=== PATIENT | female | born 1955 | race Caucasian/White ===

== ENCOUNTER 2016-09-01 05:39 | Observation (INO) | payer OTHER ==
[2016-09-01 06:09] VITALS: BMI 25.2
--- NOTE | 2016-09-01 06:20 | PDOC ---
History of Present Illness - General Stated Complaint: PALPITATION Time Seen by Provider: 09/01/16 05:52 - History of Present Illness Initial Comments: 09/01/16 06:17 CHIEF COMPLAINT: palpitations HISTORY OF PRESENT ILLNESS: 61 yo F with significant PMH of two MIs (s/p two stent placements in 2009), IDDM, ESRD (on nightly home dialysis) BIBEMS to ED for palpitations. Patient states she was prescribed a "new medication" and took her first dose last night around 8 pm. When she was getting ready to go to bed, she didn't feel well and felt palpitations and shortness of breath. Per EMS, the "new medication" was Cardizem and upon EMS arrival her BP was 88/55, and her heart rate was in the 40s. After being given a bolus of fluids in the ambulance, her HR went up to the 50s-60s. On arrival to ED she no longer feels short of breath. No recent travel or sick contacts. PAST MEDICAL HISTORY: as per HPI FAMILY HISTORY: Denies SOCIAL HISTORY: Lives at home with family. Denies tobacco, alcohol, illicit drug use. SURGICAL HISTORY:as per HPI ALLERGIES: No known drug allergies REVIEW OF SYSTEMS General/Constitutional: Denies fever or chills. Denies weakness, weight change. HEENT: Denies change in vision. Denies ear pain or discharge. Denies sore throat. Cardiovascular: Palpitations. Denies chest pain or shortness of breath. Respiratory: Denies cough, wheezing, or hemoptysis. Gastrointestinal: Denies nausea, vomiting, diarrhea or constipation. Denies rectal bleeding. Genitourinary: Denies dysuria, frequency, or change in urination. Neurologic: Denies headache, vertigo, loss of consciousness, or loss of sensation. PHYSICAL EXAM General Appearance: Well-appearing, appropriately dressed. No apparent distress , no intoxication. HEENT: EOMI, PERRLA, normal ENT inspection, normal voice, TMs normal, pharynx normal. No conjunctival pallor. No photophobia, scleral icterus. Neck: Supple. Trachea midline. No tenderness, rigidity, carotid bruit, stridor , lymphadenopathy, or thyromegaly. Respiratory/Chest: Lungs CTAB. No shortness of breath, chest tenderness, respiratory distress, accessory muscle use. No crackles, rales, rhonchi, stridor , wheezing, dullness Cardiovascular: Bradycardic to 50s. S1, S2. No JVD, murmur,. Vascular Pulses: Dorsalis-Pedis (R): 2+, Dorsalis-Pedis (L): 2+ Gastrointestinal/Abdominal: Normal bowel sounds. Abdomen soft, non-distended. No tenderness or rebound tenderness. No organomegaly, pulsatile mass, guarding , hernia, hepatomegaly, splenomegaly. Lymphatic: No adenopathy, tenderness. Musculoskeletal/Extremities: Normal inspection. FROM of all extremities, normal capillary refill. No tenderness to extremities, pedal edema, swelling, erythema or deformity. Integumentary: Appropriate color, dry, warm. No cyanosis, erythema, jaundice or rash Neurologic: house mover helper II-XII intact. Fully oriented, alert. Appropriate mood/affect. Motor strength 5/5. No appreciable EOM palsy, facial droop or sensory deficit. Past History - Past Medical History Allergies/Adverse Reactions: Allergies Allergy/AdvReac Type Severity Reaction Status Date / Time No Known Allergies Allergy Verified 09/01/16 08:31 Home Medications: Ambulatory Orders Aspirin Coated [Ecotrin -] 81 mg PO DAILY tablet.ec 09/02/16 Calcitriol [Calcitriol -] 0.25 mcg PO DAILY #0 09/02/16 Doxepin HCl [Sinequan -] 25 mg PO DAILY #0 09/02/16 Insulin Glargine,Hum.rec.anlog [Lantus (10mL VIAL) -] 13 units SQ HS #0 Losartan Potassium 50 mg PO DAILY #0 09/02/16 Metoprolol Succinate [Toprol Xl] 25 mg PO DAILY #30 tab.er.24h 09/02/16 Miscellaneous Medical Supply [Outpatient Order] 1 each ASDIR #1 misc Nifedipine [Nifedical Xl] 60 mg PO DAILY #0 09/02/16 Sertraline HCl 50 mg PO DAILY #0 09/02/16 Torsemide 100 mg PO DAILY #0 09/02/16 Anemia: No Asthma: No Cancer: No Cardiac Disorders: Yes ([place] 2009, 2 stents, CAD) CVA: No COPD: No CHF: No Dementia: No Diabetes: Yes GI Disorders: No Disorders: No HTN: Yes Hypercholesterolemia: No Liver Disease: No Seizures: No Thyroid Disease: No - Surgical History Abdominal Surgery: Yes (peritoneal cath placement) Appendectomy: No Cardiac Surgery: Yes (stent placement) Cholecystectomy: No Lung Surgery: No Neurologic Surgery: No Orthopedic Surgery: No - Psycho/Social/Smoking Cessation Hx Anxiety: No Suicidal Ideation: No Smoking History: Unknown if ever smoked Have you smoked in the past 12 months: No Hx Alcohol Use: No Drug/Substance Use Hx: No Substance Use Type: None Cardiac Specific PMH - Complaint Specific PMHX Pacemaker: No *Physical Exam - Vital Signs Last Vital Signs Temp Pulse Resp BP Pulse Ox 98.0 F 80 18 121/54 98 09/02/16 10:09 09/02/16 10:54 09/02/16 10:54 09/02/16 10:54 09/02/16 10:09 ED Treatment Course - LABORATORY CBC & Chemistry Diagram: 09/02/16 05:35 09/02/16 05:35 - ADDITIONAL ORDERS Additional order review: 09/01/16 09/01/16 10:17 08:00 RBC 3.45 L MCV 88.0 MCHC 32.3 RDW 19.0 H MPV 9.6 POC Glucometer [id number] - RADIOLOGY Radiology Studies Ordered: Category Date Time Status CHEST PA & LAT [RAD] Stat Radiology 09/01/16 06:02 Completed - Medications Given in the ED: ED Medications Discontinued Medications Generic Name Dose Route Start Last Admin Trade Name Freq PRN Reason Stop Dose Admin Aspirin 81 mg 09/02/16 10:00 09/02/16 11:36 Asa - PO 81 mg DAILY ELIESER Administration Aspirin 81 mg 09/02/16 10:00 09/02/16 11:36 Ecotrin - PO 81 mg DAILY ELIESER Administration Calcitriol 0.25 mcg 09/01/16 16:15 09/02/16 09:48 Rocaltrol - PO 0.25 mcg DAILY ELIESER Administration Doxepin HCl 25 mg 09/01/16 16:15 09/02/16 09:51 Sinequan - PO 25 mg DAILY ELIESER Administration Heparin Sodium (Porcine) 5,000 unit 09/01/16 15:00 09/02/16 09:48 Heparin - SQ 5,000 unit Q8H-IV ELIESER Administration Insulin Aspart 1 vial 09/01/16 16:30 09/02/16 11:36 Novolog Vial Sliding Scale - SQ Not Given ACHS [facility] Protocol Insulin Detemir 13 units 09/01/16 22:00 09/01/16 23:05 Levemir Vial SQ 13 units HS ELIESER Administration Insulin Human Regular 6 units 09/01/16 09:36 09/01/16 10:08 Novolin R Vial *Ivpush / Er / Icu Only* IVPUSH 09/01/16 09:37 Not Given ONCE ONE Insulin Human Regular 6 units 09/01/16 10:03 09/01/16 09:45 Novolin R Vial *Ivpush / Er / Icu Only* SQ 09/01/16 10:04 4 units ONCE ONE Administration Nifedipine 60 mg 09/02/16 10:00 09/02/16 09:48 Procardia Xl - PO 60 mg DAILY ELIESER Administration Sertraline HCl 50 mg 09/01/16 16:15 09/02/16 09:48 Zoloft - PO 50 mg DAILY ELIESER Administration Torsemide 100 mg 09/02/16 10:00 09/02/16 09:52 Demadex - PO 100 mg DAILY ELIESER Administration Medical Decision Making - Medical Decision Making 09/01/16 06:50 61 yo F with significant PMH of two MIs (s/p two stent placements in 2009), IDDM , ESRD (on nightly home dialysis) BIBEMS to ED for palpitations. -EKG, CXR -CBC, CMP, cardiac profile, PT/INR -cardiac monitoring, trend BP/HR Q30 min Discussed case with ER attending MD Caruso. Will hold CCB reversal treatment until labs have resulted. Patient is stable at this time. EKG with T wave inversions in lead III, more pronounced than previous. Reviewed by MD Caruso. Per MD Caruso, admit to inpatient service for possible inferior wall infarct and given recent history of similar episode with Cardizem () resulting in unresponsiveness. Case discussed in detail with oncoming emergency provider including history, physical exam and ancillary studies. In brief, this patient is being seen in the ED for a chief complaint of: palpitations I have completed the initial assessment interview note and have ordered the following labs: CBC, CMP, cardiac profile, PT/INR I have reviewed the following results: EKG Pending results: labs, CXR Please call the PCP: Juliano Bonner Plan for disposition as follows: admission Oncoming SUYAPA Menendez has assumed care for the patient and will complete the evaluation and treatment. *DC/Admit/Observation/Transfer Diagnosis at time of Disposition: Lethargy, Hyperglycemia - Discharge Dispostion Disposition: HOME Condition at time of disposition: Improved - Prescriptions
--- NOTE | 2016-09-01 07:32 | PDOC ---
*Physical Exam - Vital Signs Last Vital Signs Temp Pulse Resp BP Pulse Ox 97.5 F L 80 18 101/59 98 09/01/16 06:07 09/01/16 06:07 09/01/16 06:07 09/01/16 06:07 09/01/16 06:07 - Physical Exam General Appearance: Yes: Appropriately Dressed. No: Apparent Distress HEENT: positive: Normal Voice Neck: positive: Supple Respiratory/Chest: positive: Lungs Clear, Normal Breath Sounds. negative: Respiratory Distress Cardiovascular: positive: Regular Rate, S1, S2 Gastrointestinal/Abdominal: positive: Soft. negative: Tender Integumentary: positive: Dry, Warm Neurologic: positive: Fully Oriented, Alert, Normal Mood/Affect ED Treatment Course - LABORATORY CBC & Chemistry Diagram: 09/01/16 08:00 09/01/16 08:00 Medical Decision Making - Medical Decision Making 09/01/16 07:27 61 yo F, h/o HTN, CAD, [place], multiple, DM, ESRD on PD, p/w lethargy. Found to be bradycardic and modesto at scene. Of note, patient recently started on Cardizem. In ED, patient stable with unremarkable exam as per prior mid-level. Deeper TWI in lead 3 compared to old EKG. Labs pending. Follows up with PMD Dr. Juliano Bonner 09/01/16 11:48 BG 390, insulin in progress. Rest of labs unremarkable. Will admit for mild T wave changes. Case d/w hospitalist and pt admitted to obs/tele 09/01/16 11:49 *DC/Admit/Observation/Transfer Diagnosis at time of Disposition: Lethargy, Hyperglycemia - Discharge Dispostion Condition at time of disposition: Stable Admit: Yes - Referrals Referrals: Raza Bonner [Primary Care Provider] -
[2016-09-01 08:41] LABS: INR 1.07 (0.82-1.09); PROTHROMBIN TIME (PATIENT) 11.8 SEC (9.98-11.88)
[2016-09-01 08:47] LABS: MCH 28.4 pg (25.7-33.7); MCHC 32.3 g/dl (32.0-36.0); MEAN PLT VOLUME 9.6 fl (7.5-11.1); PLATELET COUNT 324 K/MM3 (134-434); WHITE BLOOD COUNT 12.2 K/mm3 (4.0-10.0)
[2016-09-01 09:27] LABS: ALBUMIN 2.5 g/dl (3.4-5.0); ANION GAP 12 (8-16); BILIRUBIN,TOTAL 0.4 mg/dL (0.2-1.0); CO2 21 mmol/L (21-32); SGOT/AST 23 U/L (15-37); SGPT/ALT 31 U/L (12-78); TOT PROT 6.9 g/dl (6.4-8.2)
[2016-09-01 09:33] LABS: ALK PHOS 256 U/L (45-117); TROPONIN I < 0.02 ng/ml (0.00-0.05)
[2016-09-01 09:36] LABS: CREATININE 11.9 mg/dL (0.55-1.02); GLUCOSE,RANDOM 393 mg/dL (74-106)
[2016-09-01] MEDS: INSULIN REGULAR HUMAN 100 UNITS/ML *VIAL IVPUSH ONE ×2 (09:54→10:08)
[2016-09-01] MEDS ORDERED: INSULIN REGULAR HUMAN 100 UNITS/ML *VIAL ONE (09:54)
[2016-09-01] MEDS ORDERED: INSULIN REGULAR HUMAN 100 UNITS/ML *VIAL SQ ONE (10:03)
--- NOTE | 2016-09-01 14:08 | HP ---
CHIEF COMPLAINT: Palpitations. PCP: HISTORY OF PRESENT ILLNESS: The pt is a 61 year old female with a significant PMH of [place], s/p 2 stants in 2009, IDDM, ESRD( on home daily dialysis) who presents to the hospital via EMS. Yesterday around 8 PM she took Dilitiazem and felt palpitations, diaphoresis and SOB. The pt called ambulance. She states that never had episode like that in the past. BP on EMS arrival was 88/55, HR 40. After she was given fluids her BP increased as well as HR. She denies LOC, chest pain, cough. She denies dysuria, increased urgency, frequency, fever, chiills, N/V, diarrhea, constipation. The pt was recently hospitalized in [facility] for Acute respiratory failure and PNA. ER course was notable for: (1)BGM, (2)CXR PAST MEDICAL HISTORY: [place], s/p 2 stants in 2009, IDDM, ESRD( on home daily dialysis), Polio as a child PAST SURGICAL HISTORY: 2 stents 2009, peritoneal cath placement, right shoulder repair after an accident Social History: Smoking:Denies Alcohol:Denies Drugs:Denies Family History: Mother; Asthma Father; N/A Allergies: No Known Allergies Allergy (Verified 09/01/16 08:31) HOME MEDICATIONS: Medication Instructions Recorded Aspirin [ASA -] 81 mg PO DAILY 10/27/13 Hydralazine HCl 25 mg PO TID 10/27/13 Insulin Glargine,Hum.rec.anlog 20 units SQ HS 10/27/13 [Lantus Solostar PEN -] Metoprolol Succinate [Toprol XL -] 50 mg PO DAILY 10/27/13 Sodium Bicarbonate 650 mg PO BID 10/27/13 REVIEW OF SYSTEMS CONSTITUTIONAL: Absent: fever, chills, diaphoresis, generalized weakness, malaise, loss of appetite, weight change HEENT: Absent: rhinorrhea, nasal congestion, throat pain, throat swelling, difficulty swallowing, mouth swelling, ear pain, eye pain, visual changes CARDIOVASCULAR: Absent: chest pain, syncope, palpitations, irregular heart rate, lightheadedness , peripheral edema RESPIRATORY: Absent: cough, shortness of breath, dyspnea with exertion, orthopnea, wheezing, stridor, hemoptysis GASTROINTESTINAL: Absent: abdominal pain, abdominal distension, nausea, vomiting, diarrhea, constipation, melena, hematochezia GENITOURINARY: Absent: dysuria, frequency, urgency, hesitancy, hematuria, flank pain, genital pain MUSCULOSKELETAL: Absent: myalgia, arthralgia, joint swelling, back pain, neck pain SKIN: Absent: rash, itching, pallor HEMATOLOGIC/IMMUNOLOGIC: Absent: easy bleeding, easy bruising, lymphadenopathy, frequent infections ENDOCRINE: Absent: unexplained weight gain, unexplained weight loss, heat intolerance, cold intolerance NEUROLOGIC: Absent: headache, focal weakness or paresthesias, dizziness, unsteady gait, seizure, mental status changes, bladder or bowel incontinence PSYCHIATRIC: Absent: anxiety, depression, suicidal or homicidal ideation, hallucinations. PHYSICAL EXAMINATION GENERAL: Awake, alert, and fully oriented, in no acute distress. HEAD: Normal with no signs of trauma. EYES: Pupils equal, round and reactive to light, extraocular movements intact, sclera anicteric, conjunctiva clear. No lid lag. EARS, NOSE, THROAT: Ears normal, nares patent, oropharynx clear without exudates. Moist mucous membranes. NECK: Normal range of motion, supple without lymphadenopathy, JVD, or masses. LUNGS: Breath sounds equal, clear to auscultation bilaterally. No wheezes, and no crackles. No accessory muscle use. HEART: Regular rate and rhythm, normal S1 and S2 without murmur, rub or gallop. ABDOMEN: Soft, nontender, not distended, normoactive bowel sounds, no guarding, no rebound, no masses. No hepatomegaly or splenomegaly. MUSCULOSKELETAL: Normal range of motion at all joints. No bony deformities or tenderness. No CVA tenderness. UPPER EXTREMITIES: 2+ pulses, warm, well-perfused. No cyanosis. No clubbing. Cap refill <2 seconds. No peripheral edema. LOWER EXTREMITIES: 2+ pulses, warm, well-perfused. No calf tenderness. Left calf muscle atrophy. No peripheral edema. NEUROLOGICAL: Cranial nerves II-XII intact. Left foot drop. Normal speech. Gait not observed. PSYCHIATRIC: Cooperative. Good eye contact. Appropriate mood and affect. SKIN: Warm, dry, normal turgor, no rashes or lesions noted. ASSESSMENT/PLAN: The pt is a 61 year old female with a significant PMH of DE, s/p 2 stants in 2009, IDDM, ESRD( on home daily dialysis) who presents to the hospital via EMS. Yesterday around 8 PM she took Dilitiazem and felt palpitations, diaphoresis and SOB. The pt called ambulance. She states that never had episode like that in the past. BP on EMS arrival was 88/55, HR 40. After she was given fluids her BP increased as well as HR. No more palpitations in the hospital. She is placed on observation for hypotension and bradycardia. Hypotension and bradycardia: -probably due to several medications for HTN -hold Metoprolol, Dilitiazem, Losartan -cardiology consultation -no new EKG changes when compared to previous EKG (T wave inversion in the past) -f/u troponins -cardiac monitoring -vital signs Hyperglycemia: -ISS ACHS -BGM ACHS -increase Lantus to 13 units HS Normocytic anemia: -Hgb 9.8, recently around 8 -f/u Iron studies ESRD: -continue peritoneal dialysis -pt on home machine at the hospital -Nephrology consultation -avoid nephrotoxic substances DVT PPX: Heparin 5000 u SQ Q8h F/E/N: No/No/Low sodium diet Disposition: Placed on observation in telemetry Problem List - Problem (1) Hyperglycemia Code(s): R73.9 - HYPERGLYCEMIA, UNSPECIFIED (2) ESRD on peritoneal dialysis Code(s): N18.6 - END STAGE RENAL DISEASE Z99.2 - DEPENDENCE ON RENAL DIALYSIS (3) Hypotension Code(s): I95.9 - HYPOTENSION, UNSPECIFIED Qualifiers: Hypotension type: other hypotension type Qualified Code(s): I95.89 - Other hypotension (4) Bradycardia Code(s): R00.1 - BRADYCARDIA, UNSPECIFIED Visit type - Emergency Visit Emergency Visit: Yes ED Registration Date: 09/01/16 Care time: The patient presented to the Emergency Department on the above date and was hospitalized for further evaluation of their emergent condition. - New Patient This patient is new to me today: Yes Date on this admission: 09/01/16 - Critical Care Critical Care patient: No
--- NOTE | 2016-09-01 14:48 | PN ---
Teaching Attending Note Name of Resident: Michelle Chang ATTENDING PHYSICIAN STATEMENT I saw and evaluated the patient. I reviewed the resident's note and discussed the case with the resident. I agree with the resident's findings and plan as documented. SUBJECTIVE: CC : hypotension and palpitations. She was started on CArdizem yesterday . Took first pill at 8 pm, then did not feel well at night . early this am she has palpitations, sweating and felt like having hot flashes. she checked her BP it was SBP 64 ,, so ambulance was called . Cardizzem was prescribed by her HD doctor , although on bottle it has Dr. Dinero name . She denies any fever or chills, cough or sputum production , denies any abd pain , she does not make urine OBJECTIVE: NAD , AAOx3 HEENT: MMM, no JVD, symmetric face , EOMI.. CV: RRR, modesto , NO MRG Lungs : CTAB ABd : soft, NT, ND , NL BS , RLQ dialysis cath with no surrounding erythema or edema Ext : no edema over lower or upper ext . L foot drop. L leg muscular atrophy. ASSESSMENT AND PLAN: 61 y/o lady withh/o DM , ESRD on peritoneal HD , CAD, [place], Stents in 2013 other medical problems, and recent hospitalization for septic shock from [facility] in who presented after an episode of palpitation, sweating and hypotension. she was found to have hypotension , and bradycardia and hyperglycemia 1- HYpotension and bradycardia: It could be due to medication effect Cardizem in addition to BB she takes at home. she does not look volume depleted . ACS needs to be R/O but pt has no change in her EKG frm last admission ( junctional rhythm with inverted T waves in V1, III) , she also does not have CP. SBP has improved to 101 and HR is 80s . Sh had rapid palpitations at home , we need to monitor for modesto-tachy syndrome - hold AV jonatan marce . monitor BP and HR, might need to resume BB soon. not clear why cardizem was added ( ? tachycardia ) - tele monitoring - Dr. Trotter is her cardioogist - hold off further IVF , given her ESRD . - patient does not seem to be septic , although she has mild leukocytosis . she has no source of infection ( no diarrhea , abd apin, fever , chills, cough , or any infiltrate on Cxray). will monitor for any signs of infection sridevi she has dialysis cath in abd . - if she has fever , will send blood cx andcover with Abx . hold off now 2- ESRD: on peritoneal dialysis x 9 hr each night - no electrolytes abn . - will consult Dr. Cox 3- Dm with severe hyperglycemia : no evidence of DKA. - received regula insulinin ER but no repeat of her sugar. - will repeat - SSI . - will confirm her lantus dose and prescribe HS 4- DVTPX heparin will confirm home meds as pt does not have list with her .
[2016-09-01] MEDS: HEPARIN NA (PORCINE) 5,000 UNITS/ML 1ML VIAL SQ SCH (15:08)
[2016-09-01] MEDS ORDERED: HEPARIN NA (PORCINE) 5,000 UNITS/ML 1ML VIAL ONE (15:08)
--- NOTE | 2016-09-01 15:27 | CONSULT ---
Consult - text type - Consultation Consultation Note: Renal Consult for ESRD on PD This is a 61 year old woman with PMhx of ESRD on PD, CAD s/p IN, DM with recent admission for Sepsis/PNA requiring ICU stay presents with weakness and dizziness and found to have symptomatic bradycardia. Pt was started on Cardizem by PMD yesterday. Pt denies any chest pain, sob, abd pain, N/V/D. Did PD last night but cut it short because she was not feeling well. Denies any fever, chills or Abd pain. PMhx: as above Alleriges: NKDA Family Hx: NC Social Hx: No T/A/D ROS: as per HPI, all other pertinent ros negative Home Meds: Medication Instructions Recorded Calcitriol [Rocaltrol -] 0.25 mcg PO DAILY 09/01/16 Doxepin HCl [Sinequan -] 25 mg PO DAILY 09/01/16 Insulin Glargine,Hum.rec.anlog 10 units SQ HS 09/01/16 [Lantus (nf)] Losartan Potassium 50 mg PO DAILY 09/01/16 Metoprolol Succinate [Toprol Xl] 50 mg PO DAILY 09/01/16 Nifedipine [Nifedical Xl] 60 mg PO DAILY 09/01/16 Sertraline HCl 50 mg PO DAILY 09/01/16 Torsemide 100 mg PO DAILY 09/01/16 Vital Signs Temperature 98.2 F 09/02/16 07:00 Pulse Rate 84 09/02/16 07:00 Respiratory Rate 20 09/02/16 07:00 Blood Pressure 120/52 09/02/16 07:00 O2 Sat by Pulse Oximetry (%) 95 09/02/16 04:00 Gen: NAD, awake and alert HEENT: NC/AT, MMM, No JVD CVS: bradycaridc No M/R lungs: CTA, no rales or wheeze Abd: soft NT/ND, PD catheter in place Ext: No edmea, clubbing or cyanosis : No bladder distension CBC, BMP 09/02/16 05:35 09/02/16 05:35 Current Medications Calcitriol (Rocaltrol -) 0.25 mcg PO DAILY [facility] Last Admin: 09/01/16 17:01 Dose: 0.25 mcg Doxepin HCl (Sinequan -) 25 mg PO DAILY [facility] Last Admin: 09/01/16 17:01 Dose: 25 mg Heparin Sodium (Porcine) (Heparin -) 5,000 unit SQ Q8H-IV ELIESER Last Admin: 09/02/16 02:00 Dose: Not Given Insulin Aspart (Novolog Vial Sliding Scale -) 1 vial SQ ACHS ELIESER PRN Reason: Protocol Last Admin: 09/02/16 06:56 Dose: 6 units Insulin Detemir (Levemir Vial) 13 units SQ HS ELIESER Last Admin: 09/01/16 23:05 Dose: 13 units Nifeidipine (Procardia Xl -) 60 mg PO DAILY ELIESER Sertraline HCl (Zoloft -) 50 mg PO DAILY [facility] Last Admin: 09/01/16 17:01 Dose: 50 mg Torsemide (Demadex -) 100 mg PO DAILY ELIESER A/P 61 year old woman with PMhx of ESRD on PD, CAD s/p IN, DM with recent admission for Sepsis/PNA requiring ICU stay presents with weakness and dizziness and found to have symptomatic bradycardia. #Symptomatic Bradycardia From CCB +BB Cardiology follow up Tele monitoring #ESRD on PD Will resume PD via the cycler as inpatient to bring in cycler from home Continue Torsemide Daily #CKD related Anemia No indication for transfusion to resume MARJORIE protocol as outpatient Thank you will follow
--- NOTE | 2016-09-01 16:19 | EKG ---
Test Reason : Blood Pressure : / mmHG Vent. Rate : 052 BPM Atrial Rate : 047 BPM P-R Int : 000 ms QRS Dur : 088 ms QT Int : 472 ms P-R-T Axes : 000 060 -02 degrees QTc Int : 438 ms JUNCTIONAL RHYTHM CANNOT RULE OUT INFERIOR INFARCT , AGE UNDETERMINED ABNORMAL ECG WHEN COMPARED WITH ECG OF 04-AUG-2016 21:10, JUNCTIONAL RHYTHM HAS REPLACED ATRIAL FIBRILLATION NONSPECIFIC T WAVE ABNORMALITY NOW EVIDENT IN ANTERIOR LEADS Confirmed by LUZ MARINA POLANCO MD ([id number]) on 09/01/2016 4:19:03 PM Referred By: Confirmed By:LUZ MARINA POLANCO MD
[2016-09-01] MEDS ORDERED: INSULIN SLIDING SCALE (NOVOLOG) 1 VIAL SQ SCH (16:30)
[2016-09-01] MEDS: CALCITRIOL 0.25 MCG CAPSULE (FP) PO SCH (17:01)
[2016-09-01] MEDS: SERTRALINE HCL 50 MG TABLET (FP) PO SCH (17:01)
[2016-09-01] MEDS: DOXEPIN HCL 25 MG CAPSULE PO SCH (17:01)
[2016-09-01] MEDS: INSULIN SLIDING SCALE (NOVOLOG) 1 VIAL SQ SCH ×2 (17:55→23:05)
[2016-09-01] MEDS ORDERED: SODIUM BICARBONATE 650 MG TABLET PO SCH (22:00)
[2016-09-01] MEDS ORDERED: INSULIN DETEMIR 100 UNITS/ML MDV SQ SCH ×2 (22:00)
--- NOTE | 2016-09-01 23:59 | CONSULT ---
[id number] a new medication (diltiazem) - History of Present Illness Chief Complaint: No palpitations or chest pain presently. History of Present Illness: 61 yo F with significant PMH of two MIs (s/p two stent placements in 2009), IDDM , ESRD (on nightly home dialysis) BIBEMS to ED for palpitations. Patient states she was prescribed a "new medication" and took her first dose last night around 8 pm. When she was getting ready to go to bed, she didn't feel well and felt palpitations and shortness of breath. Per EMS, the "new medication" was Cardizem and upon EMS arrival her BP was 88/55, and her heart rate was in the 40s. After being given a bolus of fluids in the ambulance, her HR went up to the 50s-60s. On arrival to ED she no longer feels short of breath. - History Source History Provided By: Medical Record - Past Medical History Cardio/Vascular: Yes: CAD, HTN, Hyperlipdemia, PA (2009). No: AFIB, Aneurysm, Aortic Insufficiency, Pulmonary Hypertension Gastrointestinal: Yes: Other (Peritoneal dialysis for 10 days only) Hepatobiliary: Yes: Cholelithiasis, Hepatitis B (had past exposure, antigen negative as outpatient) Renal/: Yes: Renal Failure, Renal Calculi (s/p 2 stents , three years ago) Reproductive: Yes: Postmenopausal ...: No Heme/Onc: Yes: Anemia Musculoskeletal: Yes: Chronic low back pain Endocrine: Yes: Diabetes Mellitus ((11-12 years)) - Past Surgical History Past Surgical History: Yes: Cholecystectomy, Hysterectomy, Oopherectomy, Stent ( coronary stent 2009) - Alcohol/Substance Use Hx Alcohol Use: No - Smoking History Smoking history: Unknown if ever smoked Have you smoked in the past 12 months: No - Social History Usual Living Arrangement: With Spouse ADL: Independent History of Recent Travel: Yes Home Medications - Allergies Allergies/Adverse Reactions: Allergies Allergy/AdvReac Type Severity Reaction Status Date / Time No Known Allergies Allergy Verified 10/02/16 18:49 - Home Medications Home Medications: Ambulatory Orders Aspirin Coated [Ecotrin -] 81 mg PO DAILY tablet.ec 09/02/16 Calcitriol [Calcitriol -] 0.25 mcg PO DAILY #0 09/02/16 Insulin Glargine,Hum.rec.anlog [Lantus (10mL VIAL) -] 13 units SQ HS #0 Losartan Potassium 50 mg PO DAILY #0 09/02/16 Metoprolol Succinate [Toprol Xl] 25 mg PO DAILY #30 tab.er.24h 09/02/16 Miscellaneous Medical Supply [Outpatient Order] 1 each ASDIR #1 misc Nifedipine [Nifedical Xl] 60 mg PO DAILY #0 09/02/16 Sertraline HCl 50 mg PO DAILY #0 09/02/16 Torsemide 100 mg PO DAILY #0 09/02/16 Family Disease History - Family Disease History Family Disease History: Diabetes: Son, Daughter Review of Systems - Review of Systems Constitutional: reports: Weakness Eyes: reports: No Symptoms HENT: reports: No Symptoms Neck: reports: No Symptoms Respiratory: reports: SOB on Exertion Genitourinary: reports: Other Neurological: reports: No Symptoms Endocrine: reports: Increased Hunger Hematology/Lymphatic: reports: No Symptoms Psychiatric: reports: Anxiety - Risk Factors Known Risk Factors: Yes: Hypercholesterolemia, Hypertension, Physical Inactivity , Prior PA /Emb Stroke, Other Vital Signs: Vital Signs Temperature 97.5 F L 09/01/16 06:07 Pulse Rate 69 09/01/16 18:40 Respiratory Rate 18 09/01/16 06:07 Blood Pressure 127/67 09/01/16 18:40 O2 Sat by Pulse Oximetry (%) 98 09/01/16 06:07 Constitutional: Yes: Anxious Eyes: Yes: WNL HENT: Yes: WNL Neck: Yes: WNL Respiratory: Yes: Regular Gastrointestinal: Yes: Soft Renal/: No: Anuria Cardiovascular: Yes: Regular Rate and Rhythm JVD: No Carotid Bruit: No PMI: Non-Displaced Heart Sounds: Yes: S1, S2, S4 Murmur: Yes: Systolic Murmur, Grade 2 Musculoskeletal: Yes: Muscle Weakness Extremities: Yes: WNL Edema: No Peripheral Pulses WNL: No Peripheral Pulses: 1+ Left Doralis Pedis, 1+ Right Dorsalis Pedis Integumentary: Yes: WNL Neurological: Yes: Alert, Oriented - Other Data Labs, Other Data: INR, PTT INR 1.07 (0.82-1.09) 09/01/16 08:00 Echo: Report Reviewed (Normal LVEF; moderate TR; moderate-severe MR) Imaging - Results Chest X-ray: Image Reviewed (right infiltrates) EKG: Image Reviewed (NSR) Problem List - Problems (1) Bradycardia Assessment/Plan: bradycardia and hypotension after recently starting diltiazem. Agree with discontinuation of diltiazem (BP and HR have improved in ER); f/u on telemetry. TFTs WNL (07/2016). Code(s): R00.1 - BRADYCARDIA, UNSPECIFIED (2) Anemia Code(s): D64.9 - ANEMIA, UNSPECIFIED Qualifiers: Anemia type: unspecified type Qualified Code(s): D64.9 - Anemia, unspecified (3) Diabetes mellitus Code(s): E11.9 - TYPE 2 DIABETES MELLITUS WITHOUT COMPLICATIONS (4) ESRD on peritoneal dialysis Assessment/Plan: F/u with access assoc Code(s): N18.6 - END STAGE RENAL DISEASE Z99.2 - DEPENDENCE ON RENAL DIALYSIS (5) Lactic acidosis Code(s): E87.2 - ACIDOSIS
[2016-09-02 00:04] LABS: GLUCOSE,RANDOM 252 mg/dL (74-106)
[2016-09-02 00:05] LABS: TROPONIN I < 0.02 ng/ml (0.00-0.05)
[2016-09-02] MEDS: HEPARIN NA (PORCINE) 5,000 UNITS/ML 1ML VIAL SQ SCH ×2 (02:00→09:48)
[2016-09-02] MEDS: INSULIN SLIDING SCALE (NOVOLOG) 1 VIAL SQ SCH ×2 (06:56→11:36)
[2016-09-02 08:03] LABS: MCH 28.3 pg (25.7-33.7); MCHC 32.3 g/dl (32.0-36.0); MEAN CELL VOLUME 87.6 fl (80-96); MEAN PLT VOLUME 9.5 fl (7.5-11.1); PLATELET COUNT 311 K/MM3 (134-434); RDW 19.1 % (11.6-15.6); WHITE BLOOD COUNT 12.1 K/mm3 (4.0-10.0)
[2016-09-02 08:20] LABS: ANION GAP 14 (8-16); CALCIUM 7.2 mg/dL (8.5-10.1); CO2 25 mmol/L (21-32); GLUCOSE,RANDOM 230 mg/dL (74-106)
[2016-09-02 08:25] LABS: FERRITIN 498.071 ng/ml (6.9-282.5); TROPONIN I < 0.02 ng/ml (0.00-0.05)
[2016-09-02] MEDS ORDERED: PT OWN MED DRAWER 7, Y5N ONE (08:49)
[2016-09-02 09:33] LABS: CREATININE 11.4 mg/dL (0.55-1.02)
[2016-09-02] MEDS: SERTRALINE HCL 50 MG TABLET (FP) PO SCH (09:48)
[2016-09-02] MEDS: CALCITRIOL 0.25 MCG CAPSULE (FP) PO SCH (09:48)
[2016-09-02] MEDS: DOXEPIN HCL 25 MG CAPSULE PO SCH (09:51)
[2016-09-02] MEDS ORDERED: METOPROLOL SUCCINATE 25 MG TAB.SR.24H (FP) ONE (09:56)
[2016-09-02] MEDS ORDERED: ASPIRIN 81 MG CHEWABLE TABLETS ONE (09:56)
[2016-09-02] MEDS ORDERED: ASPIRIN COATED 81 MG TABLET.EC PO SCH (10:00)
[2016-09-02] MEDS ORDERED: TORSEMIDE 100 MG TABLET PO SCH (10:00)
[2016-09-02] MEDS ORDERED: NIFEdipine E.R 60 MG TABLET (UD) PO SCH ×2 (10:00)
[2016-09-02] MEDS ORDERED: ASPIRIN 81 MG CHEWABLE TABLETS PO SCH (10:00)
[2016-09-02 10:10] VITALS: TEMP 98
[2016-09-02 10:54] VITALS: BP 121/54; PULSE 80
--- NOTE | 2016-09-02 14:40 | EKG ---
Test Reason : Blood Pressure : / mmHG Vent. Rate : 061 BPM Atrial Rate : 061 BPM P-R Int : 176 ms QRS Dur : 088 ms QT Int : 446 ms P-R-T Axes : 012 013 013 degrees QTc Int : 448 ms NORMAL SINUS RHYTHM NORMAL ECG WHEN COMPARED WITH ECG OF 01-SEP-2016 06:18, SINUS RHYTHM HAS REPLACED JUNCTIONAL RHYTHM NONSPECIFIC T WAVE ABNORMALITY NO LONGER EVIDENT IN ANTERIOR LEADS Confirmed by COLLIN BERGER, LUZ MARINA ([id number]) on 09/02/2016 2:39:40 PM Referred By: Confirmed By:LUZ MARINA POLANCO MD
--- NOTE | 2016-09-02 16:53 | DS ---
Physical Examination Vital Signs: Vital Signs Temperature 98.0 F 09/02/16 10:09 Pulse Rate 80 09/02/16 10:54 Respiratory Rate 18 09/02/16 10:54 Blood Pressure 121/54 09/02/16 10:54 O2 Sat by Pulse Oximetry (%) 98 09/02/16 10:09 Findings/Remarks: no fever or chills, no abd pain, no SOB or palpitations , no CP. No light headedness PE : NAD , AAOx3 HEENT: MMM, no JVD, symmetric face , EOMI.. CV: RRR, [place] , 2/6 DM in LLSBand Elma Lungs : CTAB ABd : soft, NT, ND , NL BS , RLQ dialysis cath with no surrounding erythema or edema Ext : no edema over lower or upper ext . L foot drop. L leg muscular atrophy. Labs: CBC, BMP 09/02/16 05:35 09/02/16 05:35 Discharge Summary Reason For Visit: PALPITATION Hospital Course: Dc Diagnoses : 1- Hypotension , and bradycardia . Hospital course : 61 y/o lady with h/o DM , ESRD on peritoneal HD , CAD, MS, Stents in 2013 other medical problems, and recent hospitalization for septic shock from [facility] in 08/03 who presented after an episode of palpitation, sweating and hypotension. she was found to have hypotension , and bradycardia and hyperglycemia at presentation to the ER . Her hypotension was thought to be due to cardizem CD 360 as she was prescribed this one day prior to admission and took the first pill that night . ( took pill at 8 pm and over night and early AM she had sx of light headedness , sweating , and palpitations, sBP per pt machine in 60s ) at presentation she was bracdycardic to 50s . ( junctional rhythm ) . Her EKG did not show change from prior one Her CArdizem was held , and her other BP meds were held yesterday . she had received Peritoneal Dialysis oer night . This am her HR was in 80s and her BP was 120 . she was given her Nifedipine XL in am and was advised not to take Cardizem at dc and take half the dose of her toprol . she is to cont losartan . She was no though to be septic although she has mild leukocytosis of 12 K ( same as dc last month ) . She has no source of infection ( no diarrhea , abd apin, fever , chills, cough , or any infiltrate on Cxray, NL abd exam ). she was asked to take aspirin given her hx . She was seen by Dr. Ervin and he agreed with the plan . e she had GLC of 360 at presentatio , he rlantus dose was increased form 10 to 13 units HS . Dispo : Home Condition : improved F/u : PCP , and Card , and renal Blood work ; in 1 week to be faxed to Dr. Bonner Condition: Improved - Instructions Diet, Activity, Other Instructions: please follow with your PCP in [address] Trotter in 1 week - take half the dose of metoprolol ( 25 mg instead of 50 mg ) , new prescription sent to pharmacy - do NOT take cardizem until you follow with rn otolaryngology - jim hare any dizziness, palpitations, fever , chills, change in vision or any other symptoms to your doctor - take baby aspirin every day - continue to follow withyour gasket inspector - blood work in [address] Bonner - check your blood pressure daily , report to your doctor . if your BP < 105/60 please hold your blood pressure medications ( metorpolol, losartan, and nifedipine ) and call your doctor . - if your BP > 160/60 take your medicines and call your doctor . - your insulin dose was increased to 13 units . Referrals: Lacho Trotter MD [Staff Physician] - 1 Week Raza Bonner [Primary Care Provider] - 1 Week Disposition: HOME - Home Medications Comprehensive Discharge Medication List: Ambulatory Orders Aspirin Coated [Ecotrin -] 81 mg PO DAILY tablet.ec 09/02/16 Calcitriol [Calcitriol -] 0.25 mcg PO DAILY #0 09/02/16 Doxepin HCl [Sinequan -] 25 mg PO DAILY #0 09/02/16 Insulin Glargine,Hum.rec.anlog [Lantus (10mL VIAL) -] 13 units SQ HS #0 Losartan Potassium 50 mg PO DAILY #0 09/02/16 Metoprolol Succinate [Toprol Xl] 25 mg PO DAILY #30 tab.er.24h 09/02/16 Miscellaneous Medical Supply [Outpatient Order] 1 each ASDIR #1 misc Nifedipine [Nifedical Xl] 60 mg PO DAILY #0 09/02/16 Sertraline HCl 50 mg PO DAILY #0 09/02/16 Torsemide 100 mg PO DAILY #0 09/02/16 This patient is new to me today: No Emergency Visit: Yes ED Registration Date: 09/01/16 Care time: The patient presented to the Emergency Department on the above date and was hospitalized for further evaluation of their emergent condition. Critical Care patient: No - Discharge Referral Referred to [facility] No
[2016-09-04 00:07] LABS: SERUM IRON 49 ug/dL (27-139); TOTAL IRON BINDING CAPACITY 182 ug/dL (250-450); UIBC 133 ug/dL (118-369)
== END 2016-09-02 14:58 | disposition home or self-care (01) ==
LOC: JER 05:39 → JERBED 11:58 → J4W 20:43
PROVIDERS: ADMIT Internal Medicine; ATTEND Internal Medicine
PROC: 3E1M39Z Irrigation of Peritoneal Cavity using Dialysate, Percutaneous Approach (ICD-10-PCS; principal; 2016-09-01)
DX: I95.2 Hypotension due to drugs (principal); T46.1X5A Adverse effect of calcium-channel blockers, initial encounter; R00.1 Bradycardia, unspecified; R00.2 Palpitations; I25.10 Atherosclerotic heart disease of native coronary artery without angina pectoris; Z95.5 Presence of coronary angioplasty implant and graft; I12.0 Hypertensive chronic kidney disease with stage 5 chronic kidney disease or end stage renal disease; N18.6 End stage renal disease; Z99.2 Dependence on renal dialysis; E11.65 Type 2 diabetes mellitus with hyperglycemia; I25.2 Old myocardial infarction; Z79.4 Long term (current) use of insulin; Z86.12 Personal history of poliomyelitis; D63.1 Anemia in chronic kidney disease
CPT/HCPCS: 36415; 71020-TC; 80048; 80053; 82550; 82728; 82947; 83540; 83550; 84484; 85027; 85610; 93005; 93010; 99283-25; G0378; J1644

== ENCOUNTER 2016-10-02 18:43 | Emergency (ER) | payer OTHER ==
[2016-10-02] MEDS ORDERED: ASPIRIN 81 MG CHEWABLE TABLETS PO ONE ×2 (18:53→19:02)
[2016-10-02 18:56] VITALS: PULSE 108; TEMP 97.6; BMI 25.4
[2016-10-02] MEDS ORDERED: NITROGLYCERIN 2% OINTMENT - 1GM PACKET TD ONE (19:01)
[2016-10-02] MEDS ORDERED: NITROGLYCERIN SUBLINGUAL 1/150 0.4 MG TAB SL ONE ×2 (19:02→19:55)
--- NOTE | 2016-10-02 19:04 | PDOC ---
*Physical Exam - Vital Signs Last Vital Signs Temp Pulse Resp BP Pulse Ox 97.6 F 108 H 18 212/122 92 L 10/02/16 18:51 10/02/16 18:51 10/02/16 18:51 10/02/16 18:56 10/02/16 18:51 <CarusoKim - Last Filed: 10/02/16 19:02> - Vital Signs Last Vital Signs Temp Pulse Resp BP Pulse Ox 97.6 F 108 H 18 176/94 92 L 10/02/16 18:51 10/02/16 18:51 10/02/16 18:51 10/02/16 20:05 10/02/16 18:51 <Nemo Bender - Last Filed: 10/03/16 02:01> ED Treatment Course - LABORATORY CBC & Chemistry Diagram: 10/02/16 19:10 10/02/16 19:10 - ADDITIONAL ORDERS Additional order review: Laboratory Results 10/02/16 10/02/16 10/02/16 19:10 19:10 19:10 INR 0.96 Sodium 138 Potassium 5.4 H D Chloride 99 Carbon Dioxide 27 Anion Gap 12 BUN 39 H D Creatinine 11.1 H* Creat Clearance w eGFR 3.48 Random Glucose 152 H D Calcium 8.6 Total Bilirubin 0.4 AST 24 ALT 27 Alkaline Phosphatase 246 H Creatine Kinase 128 Troponin I < 0.02 B-Natriuretic Peptide 20649.11 H Total Protein 7.4 Albumin 2.8 L 10/02/16 19:10 RBC 3.73 MCV 87.6 MCHC 31.8 L RDW 18.5 H MPV 9.0 Neutrophils % 58.1 Lymphocytes % 33.2 Monocytes % 4.0 Eosinophils % 3.8 Basophils % 0.9 - Medications Given in the ED: ED Medications Discontinued Medications Generic Name Dose Route Start Last Admin Trade Name Freq PRN Reason Stop Dose Admin Acetaminophen 650 mg 10/02/16 19:13 10/02/16 19:21 Tylenol - PO 10/02/16 19:14 650 mg ONCE ONE Administration Aspirin 162 mg 10/02/16 18:53 10/02/16 19:08 Asa - PO 10/02/16 18:54 162 mg ONCE ONE Administration Aspirin 162 mg 10/02/16 19:02 10/02/16 19:08 Asa - PO 10/02/16 19:03 162 mg ONCE ONE Administration Nitroglycerin 2 inch 10/02/16 19:01 10/02/16 19:08 Nitro-Bid 2% Paste - TD 10/02/16 19:02 2 inch ONCE ONE Administration Nitroglycerin 0.4 mg 10/02/16 19:02 10/02/16 19:21 Nitrostat - SL 10/02/16 19:03 0.4 mg ONCE ONE Administration Nitroglycerin 0.4 mg 10/02/16 19:55 10/02/16 20:04 Nitrostat - SL 10/02/16 19:56 0.4 mg ONCE ONE Administration <Nemo Bender - Last Filed: 10/03/16 02:01> Medical Decision Making - Medical Decision Making 10/02/16 19:02 Pt comes with 207 systolic in right arm and 212 systolic in left arm, she has arm pain and chest pain and weakness; She was taked straight to the ER. I gave her 2 inches nitropaste; 1 SLNTG; 364 ASA. Labs ordered. EKG ordered <Kim Caruso - Last Filed: 10/02/16 19:02> *DC/Admit/Observation/Transfer <Kim Caruso - Last Filed: 10/02/16 19:02> <Nemo Bender - Last Filed: 10/03/16 02:01> Diagnosis at time of Disposition: ESRD on peritoneal dialysis, Chest pain - Discharge Dispostion Disposition: AGAINST MEDICAL ADVICE - Referrals Referrals: Juliano Bonner MD [Primary Care Provider] -
[2016-10-02] MEDS ORDERED: ACETAMINOPHEN 325 MG TABLET (FP) PO ONE (19:13)
[2016-10-02] MEDS ORDERED: ACETAMINOPHEN 325 MG TABLET (FP) ONE (19:18)
[2016-10-02] MEDS ORDERED: NITROGLYCERIN SUBLINGUAL 1/150 0.4 MG TAB ONE (19:19)
[2016-10-02 19:35] LABS: BASOPHIL 0.9 % (0-2.0); EOSINOPHIL 3.8 % (0-4.5); MCH 27.9 pg (25.7-33.7); MCHC 31.8 g/dl (32.0-36.0); MEAN CELL VOLUME 87.6 fl (80-96); NEUTROPHILS 58.1 % (42.8-82.8); PLATELET COUNT 351 K/MM3 (134-434); RDW 18.5 % (11.6-15.6); WHITE BLOOD COUNT 14.3 K/mm3 (4.0-10.0)
[2016-10-02 19:41] LABS: INR 0.96 (0.82-1.09); PROTHROMBIN TIME (PATIENT) 10.5 SEC (9.98-11.88)
[2016-10-02 19:53] LABS: ALBUMIN 2.8 g/dl (3.4-5.0); ALK PHOS 246 U/L (45-117); ANION GAP 12 (8-16); BILIRUBIN,TOTAL 0.4 mg/dL (0.2-1.0); CALCIUM 8.6 mg/dL (8.5-10.1); CO2 27 mmol/L (21-32); GLUCOSE,RANDOM 152 mg/dL (74-106); SGOT/AST 24 U/L (15-37); SGPT/ALT 27 U/L (12-78); TOT PROT 7.4 g/dl (6.4-8.2)
[2016-10-02 19:58] LABS: TROPONIN I < 0.02 ng/ml (0.00-0.05)
[2016-10-02 20:06] LABS: CREATININE 11.1 mg/dL (0.55-1.02)
--- NOTE | 2016-10-02 20:25 | PDOC ---
History of Present Illness <Karyna Caicedo - Last Filed: 10/02/16 21:37> <Nemo Bender - Last Filed: 10/03/16 01:36> - General Chief Complaint: Blood Pressure Problem Stated Complaint: BLOOD PRESSURE PROBLEM Time Seen by Provider: 10/02/16 19:00 - History of Present Illness Initial Comments: 10/02/16 21:38 Patient is a 61 year old female with significant medical hx of HTN, CAD s/p [place] ( 2009), HLD, ESRD on peritoneal dialysis, renal calculi s/p stents x 2, DM, and anemia who is presenting to the ED with high blood pressure since this afternoon. Patients family member reports that she took her blood pressure earlier this morning and it was normal, but it was high this afternoon measuring at 219/119. The patient complains of some shortness of breath, feeling flushed, generalized weakness, and left upper arm pain. Patient states that her symptoms relieved after sublingual NTG administration in the ED. (Karyna Caicedo) Past History <Karyna Caicedo - Last Filed: 10/02/16 21:37> - Past Medical History Anemia: No Asthma: No Cancer: No Cardiac Disorders: Yes ([place] 2009, 2 stents, CAD) CVA: No COPD: No CHF: No Dementia: No Diabetes: Yes GI Disorders: No Disorders: No HTN: Yes Hypercholesterolemia: No Liver Disease: No Seizures: No Thyroid Disease: No Other medical history: PERITONEAL DILAYIS - Surgical History Abdominal Surgery: Yes (peritoneal cath placement) Appendectomy: No Cardiac Surgery: Yes (stent placement) Cholecystectomy: Yes Lung Surgery: No Neurologic Surgery: No Orthopedic Surgery: No - Psycho/Social/Smoking Cessation Hx Anxiety: No Suicidal Ideation: No Smoking History: Unknown if ever smoked Have you smoked in the past 12 months: No Information on smoking cessation initiated: No Hx Alcohol Use: No Drug/Substance Use Hx: No Substance Use Type: None Hx Substance Use Treatment: No <Nemo Bender - Last Filed: 10/03/16 01:36> - Past Medical History Allergies/Adverse Reactions: Allergies Allergy/AdvReac Type Severity Reaction Status Date / Time No Known Allergies Allergy Verified 10/02/16 18:49 Home Medications: Ambulatory Orders Aspirin Coated [Ecotrin -] 81 mg PO DAILY tablet.ec 09/02/16 Calcitriol [Calcitriol -] 0.25 mcg PO DAILY #0 09/02/16 Insulin Glargine,Hum.rec.anlog [Lantus (10mL VIAL) -] 13 units SQ HS #0 Losartan Potassium 50 mg PO DAILY #0 09/02/16 Metoprolol Succinate [Toprol Xl] 25 mg PO DAILY #30 tab.er.24h 09/02/16 Miscellaneous Medical Supply [Outpatient Order] 1 each ASDIR #1 misc Nifedipine [Nifedical Xl] 60 mg PO DAILY #0 09/02/16 Sertraline HCl 50 mg PO DAILY #0 09/02/16 Torsemide 100 mg PO DAILY #0 09/02/16 Cardiac Specific PMH - Complaint Specific PMHX Pacemaker: No <Nemo Bender - Last Filed: 10/03/16 01:36> Review of Systems <Karyna Caicedo - Last Filed: 10/02/16 21:37> <Nemo Bender - Last Filed: 10/03/16 01:36> - Review of Systems Comments:: 10/02/16 21:38 CONSTITUTIONAL: Present: flushed, generalized weakness Absent: fever, chills, diaphoresis, malaise, loss of appetite HEENT: Absent: rhinorrhea, nasal congestion, throat pain, throat swelling, difficulty swallowing, mouth swelling, ear pain, eye pain, visual changes CARDIOVASCULAR: Present: high blood pressure Absent: chest pain, syncope, palpitations, irregular heart rate, lightheadedness , peripheral edema RESPIRATORY: Present: shortness of breath Absent: cough, dyspnea with exertion, orthopnea, wheezing, stridor, hemoptysis GASTROINTESTINAL: Absent: abdominal pain, abdominal distension, nausea, vomiting, diarrhea, constipation, melena, hematochezia GENITOURINARY: Absent: dysuria, frequency, urgency, hesitancy, hematuria, flank pain, genital pain MUSCULOSKELETAL: Present: left upper arm pain Absent: myalgia, arthralgia, joint swelling SKIN: Absent: rash, itching, pallor HEMATOLOGIC/IMMUNOLOGIC: Absent: easy bleeding, easy bruising, lymphadenopathy, frequent infections ENDOCRINE: Absent: unexplained weight gain, unexplained weight loss, heat intolerance, cold intolerance NEUROLOGIC: Absent: headache, focal weakness or paresthesia, dizziness, unsteady gait, seizure, mental status changes, bladder or bowel incontinence. PSYCHIATRIC: Absent: anxiety, depression, suicidal or homicidal ideation, hallucinations (Karyna Caicedo) *Physical Exam <SaschaJannKaryna - Last Filed: 10/02/16 21:37> <Nemo Bender - Last Filed: 10/03/16 01:36> - Vital Signs Last Vital Signs Temp Pulse Resp BP Pulse Ox 97.6 F 108 H 18 185/97 92 L 10/02/16 18:51 10/02/16 18:51 10/02/16 18:51 10/02/16 22:51 10/02/16 18:51 - Physical Exam Comments: 10/02/16 21:40 GENERAL: Well developed, well nourished. Awake and alert. No acute distress. HEENT: Normocephalic, atraumatic. PERRLA, EOMI. No conjunctival pallor. Sclera are non- icteric. Moist mucous membranes. Oropharynx is clear. NECK: Supple. Full ROM. No JVD. Carotid pulses 2+ and symmetric, without bruits. No thyromegaly. No lymphadenopathy. CARDIOVASCULAR: Regular rate and rhythm. No murmurs, rubs, or gallops. Distal pulses are 2+ and symmetric. PULMONARY: No evidence of respiratory distress. Rales. No wheezing or rhonchi. ABDOMINAL: Soft. Non-tender. Non-distended. No rebound or guarding. No organomegaly. Normoactive bowel sounds. MUSCULOSKELETAL: Normal range of motion at all joints. No bony deformities or tenderness. No CVA tenderness. EXTREMITIES: No cyanosis. No clubbing. No edema. No calf tenderness. SKIN: Warm and dry. Normal capillary refill. No rashes. No jaundice. NEUROLOGICAL: Alert, awake, appropriate. Cranial nerves 2-12 intact. Normal speech. Gait is normal without ataxia. PSYCHIATRIC: Cooperative. Good eye contact. Appropriate mood and affect. (Karyna Caicedo) ED Treatment Course - LABORATORY CBC & Chemistry Diagram: 10/02/16 19:10 10/02/16 19:10 <Karyna Caicedo - Last Filed: 10/02/16 21:37> - LABORATORY CBC & Chemistry Diagram: 10/02/16 19:10 10/02/16 19:10 <Nemo Bender - Last Filed: 10/03/16 01:36> - ADDITIONAL ORDERS Additional order review: Laboratory Results 10/02/16 10/02/16 10/02/16 19:10 19:10 19:10 INR 0.96 Sodium 138 Potassium 5.4 H D Chloride 99 Carbon Dioxide 27 Anion Gap 12 BUN 39 H D Creatinine 11.1 H* Creat Clearance w eGFR 3.48 Random Glucose 152 H D Calcium 8.6 Total Bilirubin 0.4 AST 24 ALT 27 Alkaline Phosphatase 246 H Creatine Kinase 128 Troponin I < 0.02 B-Natriuretic Peptide 22340.11 H Total Protein 7.4 Albumin 2.8 L 10/02/16 19:10 RBC 3.73 MCV 87.6 MCHC 31.8 L RDW 18.5 H MPV 9.0 Neutrophils % 58.1 Lymphocytes % 33.2 Monocytes % 4.0 Eosinophils % 3.8 Basophils % 0.9 - RADIOLOGY Radiograph Interpretation: 10/02/16 21:42 Chest X-Ray Impression: Right lung infiltrates. Reported By: Sammy Wren MD (Karyna Caicedo) - Medications Given in the ED: ED Medications Discontinued Medications Generic Name Dose Route Start Last Admin Trade Name Raymond PRN Reason Stop Dose Admin Acetaminophen 650 mg 10/02/16 19:13 10/02/16 19:21 Tylenol - PO 10/02/16 19:14 650 mg ONCE ONE Administration Aspirin 162 mg 10/02/16 18:53 10/02/16 19:08 Asa - PO 10/02/16 18:54 162 mg ONCE ONE Administration Aspirin 162 mg 10/02/16 19:02 10/02/16 19:08 Asa - PO 10/02/16 19:03 162 mg ONCE ONE Administration Furosemide 100 mg 10/02/16 22:33 10/02/16 22:46 Lasix Injection - IVPUSH 10/02/16 22:34 100 mg ONCE ONE Administration Nitroglycerin 2 inch 10/02/16 19:01 10/02/16 19:08 Nitro-Bid 2% Paste - TD 10/02/16 19:02 2 inch ONCE ONE Administration Nitroglycerin 0.4 mg 10/02/16 19:02 10/02/16 19:21 Nitrostat - SL 10/02/16 19:03 0.4 mg ONCE ONE Administration Nitroglycerin 0.4 mg 10/02/16 19:55 10/02/16 20:04 Nitrostat - SL 10/02/16 19:56 0.4 mg ONCE ONE Administration Medical Decision Making <Karyna Caicedo - Last Filed: 10/02/16 21:37> <Nemo Bender - Last Filed: 10/03/16 01:36> - Medical Decision Making 10/03/16 01:18 61 yo female who has nightly peritoneal dialysis p/w elevated blood pressure -last night she only received 3 1.2 hours of dialysis and not the required 9 hours of dialysis -on exam she had some fine bibasilar rales but was nor in any distress -cardiac enzyme neg,no change on ekg from prior ekg potassium=5.4 cr=11 which is her norm I admitted her but she refused to stay,She insisted on going home to have her nightly peritoneal dialysis -I did speak w her language pathologist and he requested that this pt sign AMA and that she call him in the morning at the dialysis center, the pt and her agreed to this -it was explained that she could go into acute respiratory distress,have a hypertensive bleed or heart attack.she signed AMA and left 10/03/16 01:32 (Nemo Bender) *DC/Admit/Observation/Transfer <Karyna Caicedo - Last Filed: 10/02/16 21:37> - Discharge Dispostion Admit: Yes <Nemo Bender - Last Filed: 10/03/16 01:36> Diagnosis at time of Disposition: ESRD on peritoneal dialysis Chest pain Qualifiers: Chest pain type: unspecified Qualified Code(s): R07.9 - Chest pain, unspecified - Discharge Dispostion Disposition: AGAINST MEDICAL ADVICE Decision to Admit order Date/Time: Decision to Admit Order Category Date Time Status Decision to Admit to Hospital Routine Admission 10/02/16 22:06 Active - Referrals Referrals: Juliano Bonner MD [Primary Care Provider] - - Attestations Scribe Attestion: 10/02/16 21:41 Documentation prepared by Karyna Caicedo, acting as medical science liaison for Nemo Bender MD. (Karyna Caicedo)
[2016-10-02] MEDS ORDERED: FUROSEMIDE 40 MG/4 ML INJECTABLE VIAL IVPUSH ONE (22:33)
[2016-10-02] MEDS ORDERED: FUROSEMIDE 40 MG/4 ML INJECTABLE VIAL ONE (22:36)
[2016-10-02 22:52] VITALS: BP 185/97
--- NOTE | 2016-10-03 12:33 | EKG ---
Test Reason : Blood Pressure : / mmHG Vent. Rate : 111 BPM Atrial Rate : 111 BPM P-R Int : 146 ms QRS Dur : 090 ms QT Int : 332 ms P-R-T Axes : 045 002 040 degrees QTc Int : 451 ms SINUS TACHYCARDIA POSSIBLE LEFT ATRIAL ENLARGEMENT LEFT VENTRICULAR HYPERTROPHY ABNORMAL ECG WHEN COMPARED WITH ECG OF 01-SEP-2016 17:35, VENT. RATE HAS INCREASED BY 50 BPM Confirmed by BRET MARS MD ([id number]) on 10/03/2016 12:33:28 PM Referred By: Confirmed By:BRET MARS MD
== END 2016-10-02 22:52 | disposition left against medical advice (07) ==
LOC: JER 18:43
DX: R07.89 Other chest pain (principal); I12.0 Hypertensive chronic kidney disease with stage 5 chronic kidney disease or end stage renal disease; E11.22 Type 2 diabetes mellitus with diabetic chronic kidney disease; N18.6 End stage renal disease; N17.8 Other acute kidney failure; Z99.2 Dependence on renal dialysis; Z79.4 Long term (current) use of insulin; I25.2 Old myocardial infarction; Z95.5 Presence of coronary angioplasty implant and graft
CPT/HCPCS: 36415; 71010-TC; 80053; 82550; 83880; 84484; 85025; 85610; 93005; 93010; 99283-25

== ENCOUNTER 2019-04-24 16:42 | Inpatient (IN) | payer OTHER ==
--- NOTE | 2019-04-24 16:58 | PDOC ---
Rapid Medical Evaluation Medical Evaluation: Allergies Allergy/AdvReac Type Severity Reaction Status Date / Time No Known Allergies Allergy Verified 10/02/16 18:49 04/24/19 16:54 I have performed a brief in-person evaluation of this patient. The patient presents with a chief complaint of: Sob today, since improved. No CP. Elevated BP and HR at scene per EMS. H/o DM, HTN, ESRD on PD (9 hrs/nightly) , CAD w/ stents, multiple CVAs Pertinent physical exam findings:BP 217/97, well danni and NAD I have ordered the following:ekg/cxr/labs The patient will proceed to the ED for further evaluation. Discharge Disposition - Diagnosis SOB (shortness of breath) - Discharge Dispostion Condition at time of disposition: Stable - Referrals - Patient Instructions - Post Discharge Activity
[2019-04-24 17:32] LABS: EOS % 2.2 % (0-4.5); HEMOGLOBIN 10.2 GM/dL (10.7-15.3); LYMPH % 13.5 % (8-40); MCH 30.1 pg (25.7-33.7); MEAN CELL VOLUME 91.2 fl (80-96); MONO % 4.5 % (3.8-10.2); NEUT % 78.8 % (42.8-82.8); PLATELET COUNT 258 K/MM3 (134-434); RDW 18.7 % (11.6-15.6); WHITE BLOOD COUNT 11.1 K/mm3 (4.0-10.0)
[2019-04-24 18:11] LABS: BILIRUBIN,TOTAL 0.3 mg/dL (0.2-1); BLOOD UREA NITROGEN 22.5 mg/dL (7-18); CALCIUM 8.9 mg/dL (8.5-10.1); POTASSIUM 4.1 mmol/L (3.5-5.1); TOT PROT 8.2 g/dl (6.4-8.2)
[2019-04-24 18:13] LABS: CREATININE 8.9 mg/dL (0.55-1.3)
--- NOTE | 2019-04-24 19:51 | PDOC ---
History of Present Illness - General Chief Complaint: Shortness of Breath Stated Complaint: HIGH BP/ DIFFICULTY BREATHING Time Seen by Provider: 04/24/19 16:56 History Source: Patient Exam Limitations: No Limitations, Language Barrier - History of Present Illness Initial Comments: Sadia Purvis is a 64 yo F w a pmh of HTN, CAD s/p [place] (2009), multiple CVAs, HLD , ESRD on nightly peritoneal dialysis, renal calculi s/p stents x 2, NIDDM, and anemia who presents to the [facility] er for SOB. Patient states that earlier today she simply could not catch her breath no matter what she did. She was able to breath better when she sat straight up or stood up, but lying down was difficult for her and she felt like she was choking. Patient states that when she was short of breath she measured her blood pressure and noted it to be over 200 systolic, got worried and came into the ER. Patient denies having experienced any chest pain at any point today. Also denies recent fevers, chills, or infections. PCP: Juliano Bonner PSH: peritoneal cath, stents, cholecystectomy Social Hx: Lives at home with . Denies current smoking, drinking, or other substance usage. Allergies: NKA, NKDA Past History - Past Medical History Allergies/Adverse Reactions: Allergies Allergy/AdvReac Type Severity Reaction Status Date / Time No Known Allergies Allergy Verified 10/02/16 18:49 Home Medications: Ambulatory Orders Aspirin Coated [Ecotrin -] 81 mg PO DAILY tablet.ec 09/02/16 Calcitriol [Calcitriol -] 0.25 mcg PO DAILY #0 09/02/16 Insulin Glargine,Hum.rec.anlog [Lantus (10mL VIAL) -] 13 units SQ HS #0 Losartan Potassium 50 mg PO DAILY #0 09/02/16 Metoprolol Succinate [Toprol Xl] 25 mg PO DAILY #30 tab.er.24h 09/02/16 Miscellaneous Medical Supply [Outpatient Order] 1 each ASDIR #1 misc Nifedipine [Nifedical Xl] 60 mg PO DAILY #0 09/02/16 Sertraline HCl 50 mg PO DAILY #0 09/02/16 Torsemide 100 mg PO DAILY #0 09/02/16 Anemia: No Asthma: No Cancer: No Cardiac Disorders: Yes (HI 2010, 2 stents, CAD) CVA: No COPD: No CHF: No Dementia: No Diabetes: Yes GI Disorders: No Disorders: No HTN: Yes Hypercholesterolemia: No Liver Disease: No Seizures: No Thyroid Disease: No - Surgical History Abdominal Surgery: Yes (peritoneal cath placement) Appendectomy: No Cardiac Surgery: Yes (stent placement) Cholecystectomy: Yes Lung Surgery: No Neurologic Surgery: No Orthopedic Surgery: No - Immunization History Immunization Up to Date: No - Suicide/Smoking/Psychosocial Hx Smoking History: Never smoked Have you smoked in the past 12 months: No Information on smoking cessation initiated: No Hx Alcohol Use: No Drug/Substance Use Hx: No Substance Use Type: None Hx Substance Use Treatment: No Review of Systems - Review of Systems Able to Perform ROS?: Yes Constitutional: Yes: Malaise. No: Chills, Fever HEENTM: No: Eye Pain, Ear Discharge, Tinnitus, Hearing Loss Respiratory: Yes: Cough, Shortness of Breath, SOB with Exertion, SOB at Rest. No: Wheezing, Productive cough Cardiac (ROS): No: Chest Pain, Edema, Lightheadedness, Syncope, Chest Tightness ABD/GI: No: Abd. Pain w/ defecation, Blood Streaked Bowels, Constipated, Diarrhea, Nausea, Poor Appetite : No: Burning, Dysuria, Discharge, Frequency, Flank Pain Musculoskeletal: No: Back Pain, Gout, Joint Pain Integumentary: No: Change in Color, Change in Hair/Nails, Dryness, Erythema Neurological: No: Headache, Numbness, Paresthesia, Pre-Existing Deficit, Seizure , Dizziness Psychiatric: No: Anxiety, Depression, Frequent Crying Endocrine: No: Excessive Sweating, Flushing, Intolerance to Cold, Intolerance to Heat Hematologic/Lymphatic: Yes: Anemia. No: Blood Clots, Easy Bleeding, Easy Bruising *Physical Exam - Vital Signs Last Vital Signs Temp Pulse Resp BP Pulse Ox 98.1 F 71 20 184/78 H 100 04/24/19 16:57 04/24/19 19:15 04/24/19 19:15 04/24/19 19:15 04/24/19 19:15 - Physical Exam General Appearance: Yes: Nourished, Appropriately Dressed. No: Apparent Distress HEENT: positive: EOMI, JYOTHI, Normal ENT Inspection, Normal Voice Neck: positive: Trachea midline, Supple. negative: Decreased range of motion, Tender midline Respiratory/Chest: positive: Respiratory Distress, Labored Respiration, Crackles (bilayterally at the bases), Rales, Dullness. negative: Chest Tender, Lungs Clear, Normal Breath Sounds, Accessory Muscle Use, Rapid RR, Decreased Breath Sounds, Paradoxal Breathing, Rhonchi, Stridor, Wheezing Cardiovascular: positive: Regular Rhythm, Regular Rate, Gallop/S3. negative: Edema, JVD, Bradycardia, Tachycardia Vascular Pulses: Dorsalis-Pedis (R): 2+, Doralis-Pedis (L): 2+ Gastrointestinal/Abdominal: positive: Normal Bowel Sounds, Soft. negative: Tender Rectal Exam: positive: deferred Lymphatic: negative: Adenopathy Musculoskeletal: positive: Normal Inspection. negative: CVA Tenderness, Decreased Range of Motion, Vertebral Tenderness Extremity: positive: Normal Capillary Refill, Normal Inspection, Normal Range of Motion, Pelvis Stable. negative: Tender Integumentary: positive: Normal Color, Dry, Warm Neurologic: positive: curtain mender II-XII NML intact, Fully Oriented, Alert, Normal Mood/ Affect, Normal Response, Motor Strength 5/5 Procedures - Bedside Ultrasound Bedside Ultrasound: Cardiac Other: And Lung Remarks: Cardiac: There is global wall motion abnormalities. EPSS: 1.7 suggestive of bad heart failure. There is no pericardial effusion Lungs: bilateral B-lines, small pleural effusions at both bases. ED Treatment Course - LABORATORY CBC & Chemistry Diagram: 04/24/19 17:22 04/24/19 17:07 - ADDITIONAL ORDERS Additional order review: Laboratory Results 04/24/19 17:07 Sodium 136 Potassium 4.1 Chloride 92 L Carbon Dioxide 28 Anion Gap 16 BUN 22.5 H Creatinine 8.9 H* Est GFR (CKD-EPI)AfAm 4.84 Est GFR (CKD-EPI)NonAf 4.17 Random Glucose 155 H Calcium 8.9 Total Bilirubin 0.3 AST 11 L ALT 14 Alkaline Phosphatase 282 H Creatine Kinase 49 Troponin I 0.03 Total Protein 8.2 Albumin 3.0 L 04/24/19 17:22 RBC 3.40 L MCV 91.2 MCHC 33.0 RDW 18.7 H MPV 10.0 Neutrophils % 78.8 Lymphocytes % 13.5 D Monocytes % 4.5 Eosinophils % 2.2 Basophils % 1.0 - RADIOLOGY Radiograph Interpretation: CXR: The bones and soft tissues are intact. ORIGINAL REPORT AP portable chest: Chest pain A single AP view of the chest is been submitted. Since 10/02/2016 again noted is a weak inspiration with a current normal mediastinum and there are clear lungs. An acute chest process is not seen at this time. Correlation recommended. Medical Decision Making - Medical Decision Making Sadia Purvis is a 64 yo F w a pmh of HTN, CAD s/p HI (2009), multiple CVAs, HLD , ESRD on nightly peritoneal dialysis, renal calculi s/p stents x 2, NIDDM, and anemia who presents to the [facility] er for SOB. Patient states that earlier today she simply could not catch her breath no matter what she did. She was able to breath better when she sat straight up or stood up, but lying down was difficult for her and she felt like she was choking. Patient states that when she was short of breath she measured her blood pressure and noted it to be over 200 systolic, got worried and came into the ER. Patient denies having experienced any chest pain at any point today. Also denies recent fevers, chills, or infections. Vital Signs Temp Pulse Resp BP Pulse Ox 98.1 F 71 20 184/78 H 100 04/24/19 16:57 04/24/19 19:15 04/24/19 19:15 04/24/19 19:15 04/24/19 19:15 DDx IBNLT: ACS/HI, arrhythmia, Heart failure, PNA, electrolyte/metabolic disturbance Plan: Labs, EKG, CXR, re-assess. CXR: Unremarkable. Labs: Mild leukocytosis w left shift, elevated BUN/Cr. Trop x1 negative. Disposition:Admit to hospital for heart failure - We called Dr. Rodriguez who has been trying to call back. She states she cannot access the system and cannot put in orders. - Patient will be admitted to hospitalist team - Sign out given to MOIRA hall by attending *DC/Admit/Observation/Transfer Diagnosis at time of Disposition: SOB (shortness of breath) - Discharge Dispostion Condition at time of disposition: Stable Decision to Admit order: Yes - Referrals - Patient Instructions - Post Discharge Activity
[2019-04-24 20:41] LABS: N-TERMINAL BNP 38430.9 pg/ml (5-125)
--- NOTE | 2019-04-24 21:00 | PDOC ---
Attending Attestation - Resident Resident Name: Stefan Wilcox - ED Attending Attestation I have performed the following: I have examined & evaluated the patient, The case was reviewed & discussed with the resident, I agree w/resident's findings & plan - HPI HPI: 04/24/19 20:55 64y/o F mmp including ESRD on PD p/w progressive SOB today, worse with exertion and with + orthopnea. no cp/cough/f/c. no edema. compliant with her PD. - Physicial Exam PE: 04/24/19 20:56 vitals as noted, BP elevated seated comfortably in stretcher in no acute respiratory distress bibasilar crackles + pulm edema on pocus abd benign no edema - Medical Decision Making 04/24/19 20:57 64y/o F ESRD on PD p/w new onset dyspnea and pulmonary edema on exam/imaging. prior echo from 2016 wnl, no chest pain. labs wnl other than CRI. BNP baseline very elevated. cxr with congestion will admit for cardiac workup and renal evaluation, ? change to PD regimen 04/24/19 23:38 signout given to MOIRA Salcido for Dr. Aponte. Azaelhoaleida admit covering Michael/Kailey temporarily.
--- NOTE | 2019-04-25 01:50 | HP ---
CHIEF COMPLAINT: SOB PCP: Dr. Rodriguez HISTORY OF PRESENT ILLNESS: 64 year old female with pmhx of HTN, CAD s/p [place] (2009), multiple CVAs, HLD, ESRD on nightly peritoneal dialysis, renal calculi s/p stents x 2, NIDDM, and anemia arrived to ED for worsening SOB. Patient states she had difficulty catching her breath more severe when laying down, only felt better when she was straight up or stood up. Patient states that when she was short of breath, took her blood pressure and noted it to be over 200 systolic, got worried and came into the ER. Patient denies having experienced any chest pain at any point today. Also denies recent fevers, chills. Last ECHO 08/03: moderate to severe mitral regurgitation, moderate tricuspid regurgitation, no pericardial effusion ER course was notable for: Labs: Mild leukocytosis w left shift, elevated BUN/Cr. Trop x1 negative BNP: 52405.9, peritoneal dialysis done ED CXR: with congestion over course of dialysis bp improved 157/74 last reading Recent Travel:no PAST MEDICAL HISTORY: HTN, CAD s/p [place] (2009), multiple CVAs, HLD, ESRD on nightly peritoneal dialysis, renal calculi s/p stents x 2, IDDM, and anemia PAST SURGICAL HISTORY: peritoneal cath, stents, cholecystectomy Social History: Smoking:no Alcohol:no Drugs: no Family History: mother ( asthma) Allergies: No Known Allergies Allergy (Verified 10/02/16 18:49) HOME MEDICATIONS: Home Medications Medication Instructions Recorded Aspirin Coated [Ecotrin -] 81 mg PO DAILY tablet.ec 09/02/16 Calcitriol [Calcitriol -] 0.25 mcg PO DAILY #0 09/02/16 Insulin Glargine,Hum.rec.anlog 13 units SQ HS #0 09/02/16 [Lantus (10mL VIAL) -] Losartan Potassium 50 mg PO DAILY #0 09/02/16 Metoprolol Succinate [Toprol Xl] 25 mg PO DAILY #30 tab.er.24h 09/02/16 Miscellaneous Medical Supply 1 each ASDIR #1 misc 09/02/16 [Outpatient Order] Nifedipine [Nifedical Xl] 60 mg PO DAILY #0 09/02/16 Sertraline HCl 50 mg PO DAILY #0 09/02/16 Torsemide 100 mg PO DAILY #0 09/02/16 REVIEW OF SYSTEMS CONSTITUTIONAL: Absent: fever, chills, diaphoresis, generalized weakness, malaise HEENT: Absent: rhinorrhea, nasal congestion, throat pain, throat swelling, difficulty swallowing, mouth swelling, ear pain, eye pain, visual changes CARDIOVASCULAR: Absent: chest pain, syncope, palpitations, irregular heart rate , lightheadedness, peripheral edema RESPIRATORY: + Cough, Shortness of Breath, SOB with Exertion, SOB at Rest. GASTROINTESTINAL:Absent: abdominal pain, abdominal distension, nausea, vomiting , diarrhea, constipation, melena, hematochezia GENITOURINARY: Absent: dysuria, frequency, urgency, hesitancy, hematuria, flank pain, genital pain MUSCULOSKELETAL: Absent: myalgia, arthralgia, joint swelling, back pain, neck pain SKIN: Absent: rash, itching, pallor NEUROLOGIC: Absent: headache, focal weakness or paresthesias, dizziness, unsteady gait, seizure, mental status changes, bladder or bowel incontinence PSYCHIATRIC: Absent: anxiety, depression, suicidal or homicidal ideation, hallucinations. PHYSICAL EXAMINATION Vital Signs - 24 hr 04/24/19 04/24/19 04/24/19 16:57 19:15 23:38 Temperature 98.1 F 97.9 F Pulse Rate 83 Pulse Rate [ 71 82 Apical] Respiratory 16 20 Rate Blood Pressure 203/98 H Blood Pressure 184/78 H 175/71 H [Right Arm] O2 Sat by Pulse 100 100 97 Oximetry (%) 04/25/19 01:14 Temperature Pulse Rate Pulse Rate [ 82 Apical] Respiratory 18 Rate Blood Pressure Blood Pressure 157/74 [Right Arm] O2 Sat by Pulse 100 Oximetry (%) GENERAL: Awake, alert, and fully oriented, in no acute distress. HEENT: NC/AT, EOMI, PERRLA, EOMI, no JVD LUNGS: Breath sounds equal, clear to auscultation bilaterally. diffuse crackles. No accessory muscle use. HEART: Regular rate and rhythm, normal S1 and S2 without murmur, rub or gallop. ABDOMEN: Soft, nontender, not distended, normoactive bowel sounds, no guarding, no rebound, no masses. MUSCULOSKELETAL: Normal range of motion at all joints. No bony deformities or tenderness. No CVA tenderness. LOWER EXTREMITIES:No calf tenderness. +2 b/LE edema. NEUROLOGICAL: Cranial nerves II-XII intact. Normal speech PSYCHIATRIC: Cooperative. Good eye contact. Appropriate mood and affect. SKIN: Warm, dry Laboratory Results - last 24 hr 04/24/19 04/24/19 17:07 17:22 WBC 11.1 H RBC 3.40 L Hgb 10.2 L Hct 31.0 L MCV 91.2 MCH 30.1 MCHC 33.0 RDW 18.7 H Plt Count 258 MPV 10.0 Absolute Neuts (auto) 8.7 H Neutrophils % 78.8 Lymphocytes % 13.5 D Monocytes % 4.5 Eosinophils % 2.2 Basophils % 1.0 Nucleated RBC % 0 Sodium 136 Potassium 4.1 Chloride 92 L Carbon Dioxide 28 Anion Gap 16 BUN 22.5 H Creatinine 8.9 H* Est GFR (CKD-EPI)AfAm 4.84 Est GFR (CKD-EPI)NonAf 4.17 Random Glucose 155 H Calcium 8.9 Total Bilirubin 0.3 AST 11 L ALT 14 Alkaline Phosphatase 282 H Creatine Kinase 49 Troponin I 0.03 B-Natriuretic Peptide 87585.9 H Total Protein 8.2 Albumin 3.0 L ASSESSMENT/PLAN: 64 year old female with pmhx of HTN, CAD s/p [place] (2009), multiple CVAs, HLD,IDDM , ESRD on nightly peritoneal dialysis, renal calculi s/p stents x 2, NIDDM, and anemia arrived to ED for worsening SOB. # heart failure # ESRD on peritoneal dialysis #HTN/CAD Last ECHO 08/03: moderate to severe mitral regurgitation, moderate tricuspid regurgitation, no pericardial effusion CXR: with congestion wbc: 11.1 Mild leukocytosis w left shift, Trop x1 negative BNP: 63259.9, peritoneal dialysis done ED over course of dialysis bp improved to157/74 - follow up cardiology in AM - follow up nephro in Am - repeat cbc, bmp in AM - Continue with torsemide 100mg daily - continue with nifedipine 60 mg daily - Continue with Losartan Potassium 50 mg PO DAILY - continue with Metoprolol Succinate 25 mg PO DAILY - Continue with ASA 81 mg daily - continue with Calcitriol 0.25 mcg PO DAILY # IDDM - monitor FSBS - Continue with Lantus 13 units at night # depression - continue with Sertraline HCl 50 mg PO DAILY Problem List - Problem (1) Heart failure Code(s): I50.9 - HEART FAILURE, UNSPECIFIED (2) SOB (shortness of breath) Code(s): R06.02 - SHORTNESS OF BREATH (3) HTN (hypertension) Code(s): I10 - ESSENTIAL (PRIMARY) HYPERTENSION (4) CAD (coronary artery disease) Code(s): I25.10 - ATHSCL HEART DISEASE OF [place] CORONARY ARTERY W/O ANG PCTRS (5) Diabetes mellitus Code(s): E11.9 - TYPE 2 DIABETES MELLITUS WITHOUT COMPLICATIONS (6) ESRD on peritoneal dialysis Code(s): N18.6 - END STAGE RENAL DISEASE; Z99.2 - DEPENDENCE ON RENAL DIALYSIS Visit type - Emergency Visit Emergency Visit: Yes ED Registration Date: 04/24/19 Care time: The patient presented to the Emergency Department on the above date and was hospitalized for further evaluation of their emergent condition. - New Patient This patient is new to me today: Yes Date on this admission: 04/25/19 - Critical Care Critical Care patient: No
[2019-04-25] MEDS: INSULIN SLIDING SCALE (NOVOLOG) 1 VIAL SQ SCH ×2 (07:00→17:02)
[2019-04-25] MEDS ORDERED: TORSEMIDE 100 MG TABLET PO SCH (10:00)
[2019-04-25] MEDS ORDERED: SERTRALINE HCL 50 MG TABLET (FP) PO SCH (10:00)
[2019-04-25] MEDS ORDERED: ASPIRIN COATED 81 MG TABLET.EC PO SCH (10:00)
[2019-04-25] MEDS ORDERED: NIFEdipine E.R 60 MG TABLET (UD) PO SCH (10:00)
[2019-04-25] MEDS ORDERED: metoPROLOL SUCCINATE 25 MG TAB.SR.24H (FP) PO SCH (10:00)
[2019-04-25] MEDS ORDERED: CALCITRIOL 0.25 MCG CAPSULE (FP) PO SCH (10:00)
[2019-04-25] MEDS ORDERED: LOSARTAN POTASSIUM 50 MG TABLET (FP) PO SCH (10:00)
--- NOTE | 2019-04-25 10:51 | CON.CARD ---
Consult Consult Specialty:: cardio - History of Present Illness Chief Complaint: sob History of Present Illness: 64 F here with sob. felt sob at home on DOA, sbp 200s. says sob was acute onset, around 2pm. prior to that in [facility]. no feet swelling. no cp at all including yest. at salty snack yest (chips). denies cough, fever/chills. bp's were previously running 130s-140s including yest am prior to the episode peritoneal dialysis done in ER, bp improved. CXR with congestion. sats normal throughout presently feels normal self, no sob. laying flat. PMH: prior CVAs, CAD s/p MIs (s/p PCIs 2009), IDDM, ESRD (on nightly home dialysis), kidney stones s/p stents, anemia - Past Medical History Cardio/Vascular: Yes: CAD, HTN, Hyperlipdemia, [place] (2009). No: AFIB, Aneurysm, Aortic Insufficiency, Pulmonary Hypertension Gastrointestinal: Yes: Other (Peritoneal dialysis for 10 days only) Hepatobiliary: Yes: Cholelithiasis, Hepatitis B Renal/: Yes: Renal Failure, Renal Calculi Musculoskeletal: Yes: Chronic low back pain Endocrine: Yes: Diabetes Mellitus ((11-12 years)) - Past Surgical History Past Surgical History: Yes: Cholecystectomy, Hysterectomy, Oopherectomy, Stent - Alcohol/Substance Use Hx Alcohol Use: No - Smoking History Smoking history: Never smoked Have you smoked in the past 12 months: No - Social History Usual Living Arrangement: With Spouse ADL: Independent History of Recent Travel: Yes Home Medications - Allergies Allergies/Adverse Reactions: Allergies Allergy/AdvReac Type Severity Reaction Status Date / Time No Known Allergies Allergy Verified 10/02/16 18:49 - Home Medications Home Medications: Ambulatory Orders Aspirin Coated [Ecotrin -] 81 mg PO DAILY tablet.ec 09/02/16 Calcitriol [Calcitriol -] 0.25 mcg PO DAILY #0 09/02/16 Insulin Glargine,Hum.rec.anlog [Lantus (10mL VIAL) -] 13 units SQ HS #0 Losartan Potassium 50 mg PO DAILY #0 09/02/16 Metoprolol Succinate [Toprol Xl] 25 mg PO DAILY #30 tab.er.24h 09/02/16 Miscellaneous Medical Supply [Outpatient Order] 1 each ASDIR #1 misc Nifedipine [Nifedical Xl] 60 mg PO DAILY #0 09/02/16 Sertraline HCl 50 mg PO DAILY #0 09/02/16 Torsemide 100 mg PO DAILY #0 09/02/16 Family Disease History - Family Disease History Family Disease History: Diabetes: Son, Daughter Review of Systems - Review of Systems Constitutional: denies: Chills, Fever Eyes: denies: Eye Pain HENT: denies: Nasal Congestion Neck: denies: Stiffness Cardiovascular: denies: Palpitations Respiratory: denies: Orthopnea, PND Gastrointestinal: denies: Diarrhea, Rectal Bleeding Genitourinary: denies: Burning, Hematuria Musculoskeletal: denies: Muscle Pain Integumentary: denies: Rash Neurological: denies: Numbness, Seizure, Syncope Endocrine: denies: Excessive Sweating Hematology/Lymphatic: denies: Excessive Bleeding Vital Signs: Vital Signs Temperature 97.9 F 04/24/19 23:38 Pulse Rate 78 04/25/19 09:02 Respiratory Rate 17 04/25/19 09:02 Blood Pressure 148/79 04/25/19 09:02 O2 Sat by Pulse Oximetry (%) 100 04/25/19 09:02 Constitutional: Yes: Well Nourished, No Distress Eyes: No: Sclera Icterus HENT: No: Nasal Congestion Neck: No: Decreased ROM Respiratory: Yes: CTA Bilaterally. No: Accessory Muscle Use, Rales, Wheezes Gastrointestinal: Yes: Normal Bowel Sounds, Other (no bruit). No: Distention, Hepatomegaly, Palpable Mass, Tenderness Cardiovascular: Yes: Regular Rate and Rhythm JVD: No Carotid Bruit: No PMI: Non-Displaced Heart Sounds: Yes: S1, S2. No: Gallop Murmur: No: Systolic Murmur, Diastolic Murmur Musculoskeletal: Yes: Other (No kyphosis) Extremities: No: Cool, Cyanosis Edema: No Peripheral Pulses: 2+ Left Carotid, 2+ Right Carotid, 2+ Left Doralis Pedis, 2+ Right Dorsalis Pedis Integumentary: No: Jaundice Neurological: Yes: Alert, Oriented (x3) Psychiatric: No: Agitated - Other Data Labs, Other Data: CBC, BMP 04/24/19 17:22 04/24/19 17:07 Troponin, BNP 04/24/19 17:07 Troponin I 0.03 B-Natriuretic Peptide 22598.9 H Troponin, BNP 04/24/19 17:07 Troponin I 0.03 B-Natriuretic Peptide 60812.9 H Laboratory Tests 04/24/19 04/24/19 17:07 17:22 WBC 11.1 H Hgb 10.2 L Plt Count 258 Sodium 136 Potassium 4.1 Carbon Dioxide 28 BUN 22.5 H Creatinine 8.9 H* AST 11 L ALT 14 Creatine Kinase 49 Troponin I 0.03 Albumin 3.0 L Assessment/Plan Echo 2016: nl LV, RV. mod-sev MR, mod TR. RVSP 30-40 ECG: CXR: clear lungs/pleura, WNL SOB, MR/TR: -? sec to very hi bp's at home -CXR here clear, no effusions and no vascular redistribution. very hi BNP not informative in ESRD -trop neg, second set pending -repeat echo ordered (mod-severe MR on prior study 2016 here). no murmur on exam CAD s/p MIs and PCIs (remote): -rec cont home aspirin, statin regimen HTN urgency: -bp's currently stabilized -cont home losartan, metoprolol, nifedipine -observe bp trend DM: -per primary ESRD on dialysis: -per renal h/o CVAs: -rec continue home aspirin, statin regimen -no neuro sx's here DISPO: IF SECOND TROPONIN NEGATIVE AND BP REMAINS CONTROLLED WITH NO MORE SX'S, ? D/C THIS EVENING OR TOMORROW AM--IN WHICH CASE REPEAT ECHO CAN BE DONE IN OFFICE ( no murmur on exam)
[2019-04-25 16:01] VITALS: BMI 24.8
--- NOTE | 2019-04-25 16:30 | CON.NEP ---
Consult Consult Specialty:: nephrology - History of Present Illness Chief Complaint: dyspnea History of Present Illness: 64 year old lady with esrd 2 dm/htn who is on PD. She is no longer able to urinate. Was seen last week and some changes were made including a total reduction in her volume of fluid exchanged and her bp meds. She came in with dyspnea and her bp was elevated. She also had a change in her nifedipine and took less nifedipine yesterday. No chest pain or fever - History Source History Provided By: Patient, Medical Record - Past Medical History Cardio/Vascular: Yes: CAD, HTN, Hyperlipdemia, NV (2009). No: AFIB, Aneurysm, Aortic Insufficiency, Pulmonary Hypertension Gastrointestinal: Yes: Other (Peritoneal dialysis for 10 days only) Hepatobiliary: Yes: Cholelithiasis, Hepatitis B Renal/: Yes: Renal Failure, Renal Calculi Musculoskeletal: Yes: Chronic low back pain Endocrine: Yes: Diabetes Mellitus ((11-12 years)) - Past Surgical History Past Surgical History: Yes: Cholecystectomy, Hysterectomy, Oopherectomy, Stent - Alcohol/Substance Use Hx Alcohol Use: No - Smoking History Smoking history: Never smoked Have you smoked in the past 12 months: No - Social History Usual Living Arrangement: With Spouse ADL: Independent History of Recent Travel: Yes Home Medications - Allergies Allergies/Adverse Reactions: Allergies Allergy/AdvReac Type Severity Reaction Status Date / Time No Known Allergies Allergy Verified 10/02/16 18:49 - Home Medications Home Medications: Ambulatory Orders Aspirin Coated [Ecotrin -] 81 mg PO DAILY tablet.ec 09/02/16 Calcitriol [Calcitriol -] 0.25 mcg PO DAILY #0 09/02/16 Insulin Glargine,Hum.rec.anlog [Lantus (10mL VIAL) -] 13 units SQ HS #0 Losartan Potassium 50 mg PO DAILY #0 09/02/16 Metoprolol Succinate [Toprol Xl] 25 mg PO DAILY #30 tab.er.24h 09/02/16 Miscellaneous Medical Supply [Outpatient Order] 1 each ASDIR #1 misc Nifedipine [Nifedical Xl] 60 mg PO DAILY #0 09/02/16 Sertraline HCl 50 mg PO DAILY #0 09/02/16 Torsemide 100 mg PO DAILY #0 09/02/16 Family Disease History - Family Disease History Family Disease History: Diabetes: Son, Daughter Review of Systems - Review of Systems Constitutional: reports: No Symptoms Eyes: reports: No Symptoms HENT: reports: No Symptoms Neck: reports: No Symptoms Cardiovascular: reports: Shortness of Breath Respiratory: reports: SOB Gastrointestinal: reports: No Symptoms Genitourinary: reports: No Symptoms Breasts: reports: No Symptoms Reported Musculoskeletal: reports: No Symptoms Integumentary: reports: No Symptoms Neurological: reports: No Symptoms Endocrine: reports: No Symptoms Hematology/Lymphatic: reports: No Symptoms Nephrology Consult - Height Height: 5 ft - Weight Weight: 127 lb 6.4 oz - BMI Body Mass Index (BMI): 24.8 - Lab Results CBC,BMP: CBC, BMP 04/24/19 17:22 04/24/19 17:07 Anion Gap: Anion Gap Anion Gap 16 MMOL/L (8-16) 04/24/19 17:07 - Imaging Chest X-ray: Report Reviewed - Physical Examination Vital Signs: Vital Signs Temperature 98.2 F 04/25/19 15:53 Pulse Rate 76 04/25/19 15:53 Respiratory Rate 16 04/25/19 15:53 Blood Pressure 155/80 04/25/19 15:53 O2 Sat by Pulse Oximetry (%) 97 04/25/19 15:53 Assessment/Plan IMPRESSION She may have had dyspnea from rise in BP and possibly some fluid retention although she does not appear to be fluid overloaded now. PLAN I spoke to her dialysis nurse who states she was supposed to do 2200 cc fluid volumes 5 times a night but she is only doing 2000. I have suggested she do 2200 and stay on her nifedipine at 60 per dayas well as other meds. There is no need for torsemide since she is not aking any urine MV
[2019-04-25 18:37] VITALS: BP 158/76; PULSE 75; TEMP 97.8
[2019-04-25] MEDS ORDERED: INSULIN (LEVEMIR) 100 UNITS/ML UNITS SQ SCH (22:00)
--- NOTE | 2019-04-26 16:51 | EKG ---
Test Reason : Blood Pressure : / mmHG Vent. Rate : 076 BPM Atrial Rate : 076 BPM P-R Int : 162 ms QRS Dur : 088 ms QT Int : 400 ms P-R-T Axes : 058 -06 032 degrees QTc Int : 450 ms NORMAL SINUS RHYTHM POSSIBLE LEFT ATRIAL ENLARGEMENT LEFT VENTRICULAR HYPERTROPHY POSSIBLE INFERIOR INFARCT , AGE UNDETERMINED ABNORMAL ECG WHEN COMPARED WITH ECG OF 02-OCT-2016 19:05, BORDERLINE CRITERIA FOR INFERIOR INFARCT ARE NOW PRESENT Confirmed by JOESPH MICHAEL MD ([id number]) on 04/26/2019 4:51:38 PM Referred By: Confirmed By:JOESPH MICHAEL MD
--- NOTE | 2019-04-27 11:32 | EKG ---
Test Reason : Blood Pressure : / mmHG Vent. Rate : 083 BPM Atrial Rate : 083 BPM P-R Int : 166 ms QRS Dur : 102 ms QT Int : 384 ms P-R-T Axes : 043 000 047 degrees QTc Int : 451 ms NORMAL SINUS RHYTHM POSSIBLE LEFT ATRIAL ENLARGEMENT LEFT VENTRICULAR HYPERTROPHY POSSIBLE INFERIOR INFARCT , AGE UNDETERMINED ABNORMAL ECG WHEN COMPARED WITH ECG OF 02-OCT-2016 19:05, BORDERLINE CRITERIA FOR INFERIOR INFARCT ARE NOW PRESENT Confirmed by MARTIN BERGER, KASSY ([id number]) on 04/27/2019 11:31:49 AM Referred By: Confirmed By:KASSY SALAZAR MD
== END 2019-04-25 19:08 | disposition home or self-care (01) | DRG 304 ==
LOC: JER 16:42 → JERBED 21:45 → J4S 04-25 15:42
PROVIDERS: ADMIT Internal Medicine; ATTEND Internal Medicine
DX: I16.0 Hypertensive urgency (principal); N18.6 End stage renal disease; I25.10 Atherosclerotic heart disease of native coronary artery without angina pectoris; I12.0 Hypertensive chronic kidney disease with stage 5 chronic kidney disease or end stage renal disease; I25.2 Old myocardial infarction; E78.5 Hyperlipidemia, unspecified; Z86.73 Personal history of transient ischemic attack (TIA), and cerebral infarction without residual deficits; D64.9 Anemia, unspecified; Z79.4 Long term (current) use of insulin; E11.22 Type 2 diabetes mellitus with diabetic chronic kidney disease; Z99.2 Dependence on renal dialysis; I34.0 Nonrheumatic mitral (valve) insufficiency; I36.1 Nonrheumatic tricuspid (valve) insufficiency; F32.9 Major depressive disorder, single episode, unspecified; Z98.61 Coronary angioplasty status
CPT/HCPCS: 36415; 71045-TC-FY; 80053; 82550; 82962; 83880; 84484; 85025; 93005; 93010; 99285-25

== ENCOUNTER 2020-08-23 19:11 | Emergency (ER) | payer OTHER ==
[2020-08-23 19:27] VITALS: BMI 23.8
[2020-08-23 20:11] VITALS: BP 184/81; PULSE 75; TEMP 98
[2020-08-23] MEDS ORDERED: SODIUM CHLORIDE 0.9% 500 ML INFUS.BAG IV ONE (20:51)
[2020-08-23] MEDS ORDERED: FAMOTIDINE 20 MG/50 ML IVPB 20 MG/50 ML MG IVPB ONE ×2 (20:51→22:06)
[2020-08-23] MEDS ORDERED: MAG HYDROX/AL HYDROX/SIMETH 30 ML UNIT-DOSE CUP PO ONE (20:51)
[2020-08-23] MEDS ORDERED: MAG HYDROX/AL HYDROX/SIMETH 30 ML UNIT-DOSE CUP ONE (22:06)
[2020-08-23 22:56] LABS: BASO % 0.7 % (0-2.0); EOS % 3.4 % (0-4.5); HEMATOCRIT 29.8 % (32.4-45.2); HEMOGLOBIN 9.8 GM/dL (10.7-15.3); MCH 28.3 pg (25.7-33.7); MCHC 32.9 g/dl (32.0-36.0); MONO % 2.8 % (3.8-10.2); NEUT % 79.1 % (42.8-82.8); PLATELET COUNT 214 K/MM3 (134-434); RBC 3.47 M/mm3 (3.60-5.2); RDW 18.7 % (11.6-15.6); WHITE BLOOD COUNT 11.9 K/mm3 (4.0-10.0)
[2020-08-23 23:02] LABS: INR 1.03 (0.83-1.09); PROTHROMBIN TIME (PATIENT) 12.4 SEC (9.7-13.0)
[2020-08-23 23:05] LABS: ACTIVATED PTT 32.7 SECONDS (25.2-36.5)
[2020-08-23 23:18] LABS: BLOOD UREA NITROGEN 34.4 mg/dL (7-18)
[2020-08-23 23:23] LABS: BILIRUBIN,TOTAL 0.3 mg/dL (0.2-1); TOT PROT 8.4 g/dl (6.4-8.2)
[2020-08-23 23:33] LABS: CREATININE 9.2 mg/dL (0.55-1.3)
== END 2020-08-24 03:57 | disposition left against medical advice (07) ==
LOC: JER 19:11
PROC: 3E033GC Introduction of Other Therapeutic Substance into Peripheral Vein, Percutaneous Approach (ICD-10-PCS; principal; 2020-08-23)
DX: N18.5 Chronic kidney disease, stage 5 (principal); R79.89 Other specified abnormal findings of blood chemistry
CPT/HCPCS: 36415; 71045-TC-FY; 80053; 83880; 84484; 85025; 85610; 85730; 93005; 93010; 96374; 99285-25